=== PATIENT | male | born 1960 | race Caucasian/White ===

== ENCOUNTER 2018-07-02 09:06 | Emergency (ER) | payer MEDICARE ==
--- NOTE | 2018-07-02 10:26 | RADIOLOGY REPORT (SQ) ---
EXAM DESCRIPTION: HIP BILATERAL COMPLETED DATE/TIME: 07/02/2018 10:02 am REASON FOR STUDY: Hip pain hip pain COMPARISON: None. NUMBER OF VIEWS: Three views. TECHNIQUE: AP pelvis and additional frog-leg view of the right and left hip. LIMITATIONS: None. FINDINGS: No fracture or dislocation. Joint space narrowing in both hips. Osteophytes left femoral head. SI joints are normal. IMPRESSION: NO RADIOGRAPHIC EVIDENCE OF ACUTE INJURY. TECHNICAL DOCUMENTATION: JOB ID: [id number] [employer]- All Rights Reserved Reading location - IP/workstation name: [email or web address]
[2018-07-02 10:34] LABS: ABSOLUTE BASOPHILS # (AUTO) 0.1 10^3/uL (0.0-0.2); ABSOLUTE EOSINOPHILS # (AUTO) 0.5 10^3/uL (0.0-0.6); ABSOLUTE LYMPHOCYTES (AUTO) 1.3 10^3/uL (0.5-4.7); ABSOLUTE MONOCYTES (AUTO) 0.7 10^3/uL (0.1-1.4); ABSOLUTE NEUT (AUTO) 6.6 10^3/uL (1.7-8.2); BASOPHILS % (AUTO) 0.8 % (0-2); EOSINOPHILS % (AUTO) 5.2 % (0-6); HEMATOCRIT 42.2 % (37.9-51.0); HEMOGLOBIN 14.4 g/dL (13.5-17.0); MEAN CORPUSCULAR HEMOGLOBIN 29.1 pg (27.0-33.4); MEAN CORPUSCULAR VOLUME 85 fl (80-97); PLATELET COUNT 370 10^3/uL (150-450); RED BLOOD COUNT 4.94 10^6/uL (4.35-5.55); RED CELL DISTRIBUTION WIDTH 13.4 % (11.5-14.0); TOTAL CELLS COUNTED % (AUTO) 100 %; WHITE BLOOD COUNT 9.1 10^3/uL (4.0-10.5)
[2018-07-02 10:58] LABS: ALANINE AMINOTRANSFERASE 24 U/L (21-72); ALBUMIN 4.2 g/dL (3.5-5.0); ALKALINE PHOSPHATASE 95 U/L (38-126); ANION GAP 9 (5-19); ASPARTATE AMINO TRANSFERASE 21 U/L (17-59); BILIRUBIN,DIRECT 0.3 mg/dL (0.0-0.4); BILIRUBIN,TOTAL 0.5 mg/dL (0.2-1.3); BLOOD UREA NITROGEN 16 mg/dL (7-20); CALCIUM 9.5 mg/dL (8.4-10.2); CARBON DIOXIDE 28 mmol/L (22-30); CHLORIDE 107 mmol/L (98-107); GLUCOSE 89 mg/dL (75-110); POTASSIUM 4.4 mmol/L (3.6-5.0); SODIUM 143.7 mmol/L (137-145); TOTAL PROTEIN 7.4 g/dL (6.3-8.2)
[2018-07-02 14:46] VITALS: BP 126/92
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
== END 2018-07-02 15:30 | disposition home or self-care (01) ==
LOC: ER 09:06
DX: R53.1 Weakness (principal); M79.10 Myalgia, unspecified site; Z87.820 Personal history of traumatic brain injury
CPT/HCPCS: 36415; 73522; 80053; 85025; 99284

== ENCOUNTER 2018-10-29 17:51 | Emergency (ER) | payer MEDICARE ==
[2018-10-29 18:23] VITALS: BP 133/90
--- NOTE | 2018-10-29 18:42 | RADIOLOGY REPORT (SQ) ---
EXAM DESCRIPTION: KNEE LEFT 4 VIEW COMPLETED DATE/TIME: 10/29/2018 6:31 pm REASON FOR STUDY: bed 3 left knee swelling per julieta COMPARISON: None. NUMBER OF VIEWS: Four views. TECHNIQUE: AP, lateral, and both oblique radiographic images acquired of the left knee. LIMITATIONS: None. FINDINGS: MINERALIZATION: Normal. BONES: No acute fracture or dislocation. No worrisome bone lesions. JOINT: Small joint effusion. Narrowing of the lateral joint compartment with small marginal osteophy rafita. Posterior patellar and trochlear osteophytes. SOFT TISSUES: No soft tissue swelling. No radio-opaque foreign body. OTHER: No other significant finding. IMPRESSION: Degenerative joint disease. TECHNICAL DOCUMENTATION: JOB ID: [id number] [employer]- All Rights Reserved Reading location - IP/workstation name: [email or web address]
[2018-10-29 18:53] LABS: ABSOLUTE BASOPHILS # (AUTO) 0.1 10^3/uL (0.0-0.2); ABSOLUTE EOSINOPHILS # (AUTO) 0.6 10^3/uL (0.0-0.6); ABSOLUTE LYMPHOCYTES (AUTO) 1.5 10^3/uL (0.5-4.7); ABSOLUTE MONOCYTES (AUTO) 0.8 10^3/uL (0.1-1.4); ABSOLUTE NEUT (AUTO) 7.9 10^3/uL (1.7-8.2); BASOPHILS % (AUTO) 0.8 % (0-2); EOSINOPHILS % (AUTO) 5.2 % (0-6); HEMATOCRIT 42.4 % (37.9-51.0); HEMOGLOBIN 14.3 g/dL (13.5-17.0); LYMPHOCYTES % (AUTO) 13.8 % (13-45); MEAN CORPUSCULAR HEMOGLOBIN 28.1 pg (27.0-33.4); MEAN CORPUSCULAR HGB CONC 33.6 g/dL (32.0-36.0); MEAN CORPUSCULAR VOLUME 84 fl (80-97); MONOCYTES % (AUTO) 7.2 % (3-13); PLATELET COUNT 303 10^3/uL (150-450); RED BLOOD COUNT 5.08 10^6/uL (4.35-5.55); RED CELL DISTRIBUTION WIDTH 14.4 % (11.5-14.0); TOTAL CELLS COUNTED % (AUTO) 100 %; WHITE BLOOD COUNT 10.9 10^3/uL (4.0-10.5)
[2018-10-29 19:12] LABS: ALANINE AMINOTRANSFERASE 24 U/L (21-72); ALBUMIN 4.4 g/dL (3.5-5.0); ALKALINE PHOSPHATASE 87 U/L (38-126); ANION GAP 12 (5-19); ASPARTATE AMINO TRANSFERASE 30 U/L (17-59); BILIRUBIN,DIRECT 0.5 mg/dL (0.0-0.4); BILIRUBIN,TOTAL 0.6 mg/dL (0.2-1.3); BLOOD UREA NITROGEN 21 mg/dL (7-20); CALCIUM 9.9 mg/dL (8.4-10.2); CARBON DIOXIDE 27 mmol/L (22-30); CHLORIDE 102 mmol/L (98-107); GLUCOSE 92 mg/dL (75-110); POTASSIUM 5.1 mmol/L (3.6-5.0); SODIUM 141.2 mmol/L (137-145); TOTAL PROTEIN 8.2 g/dL (6.3-8.2)
[2018-10-29 19:39] LABS: ERYTHROCYTE SEDIMENTATION RATE 42 mm/hr (0-20)
--- NOTE | 2018-10-29 20:07 | ER Document Report ---
ED General - General Chief Complaint: Knee Injury Stated Complaint: KNEE PAIN/SWELLING Time Seen by Provider: 10/29/18 19:20 Notes: Patient is a 58-year-old male presents from [facility] due to concerns of left knee swelling and pain. Patient states that the pain and swelling started earlier today, have been constant since onset. Regards the pain as being a throbbing, aching, constant discomfort. Pain is worsened by ambulation. Has not tried nothing for improvement of the pain. Denies history of similar symptoms in the past. Denies any trauma to the area. No fever or constitutional symptoms. Has not seen his primary care physician regarding today's concerns. - Related Data Allergies/Adverse Reactions: No Known Allergies Allergy (Unverified 07/02/18 09:10) Past Medical History - General Information source: Patient - Social History Smoking Status: Former Smoker Frequency of alcohol use: None Drug Abuse: None Lives with: [facility] Family History: Reviewed & Not Pertinent Patient has suicidal ideation: No Patient has homicidal ideation: No Renal/ Medical History: Denies: Hx Peritoneal Dialysis Review of Systems - Review of Systems Notes: Constitutional: Negative for fever. HENT: Negative for sore throat. Eyes: Negative for visual changes. Cardiovascular: Negative for chest pain. Respiratory: Negative for shortness of breath. Gastrointestinal: Negative for abdominal pain, vomiting or diarrhea. Genitourinary: Negative for dysuria. Musculoskeletal: Positive for left knee pain and swelling Skin: Negative for rash. Neurological: Negative for headaches, weakness or numbness. 10 point ROS negative except as marked above and in HPI. Physical Exam - Vital signs Vitals: Temp Pulse Resp BP Pulse Ox 97.7 F 91 16 133/90 H 99 10/29/18 18:22 10/29/18 18:22 10/29/18 18:22 10/29/18 18:22 10/29/18 18:22 Interpretation: Normal Notes: PHYSICAL EXAMINATION: GENERAL: Well-appearing, well-nourished and in no acute distress. HEAD: Atraumatic, normocephalic. EYES: Pupils equal round and reactive to light, extraocular movements intact, sclera anicteric, conjunctiva are normal. ENT: nares patent, oropharynx clear without exudates. Moist mucous membranes. NECK: Normal range of motion, supple without lymphadenopathy LUNGS: Breath sounds clear to auscultation bilaterally and equal. No wheezes rales or rhonchi. HEART: Regular rate and rhythm without murmurs, 2+ DP pulses bilaterally ABDOMEN: Soft, nontender, normoactive bowel sounds. No guarding, no rebound. No masses appreciated. EXTREMITIES: Mild diffuse swelling of the left knee. Full flexion extension b oth actively and passively of the knee. NEUROLOGICAL: No focal neurological deficits. Moves all extremities spontaneously and on command. PSYCH: Normal mood, normal affect. SKIN: Warm, Dry, normal turgor, no rashes or lesions noted. Course - Re-evaluation Re-evalutation: 10/29/18 20:03 Patient presents with left knee pain and swelling that started within the past 48 hours. In triage labs were ordered as well as an x-ray. For unclear reasons and ESR was also sent with the labs and I do not have a clinical suspicion for septic joint. The patient has full range of motion with the knee full flexion to 90 degrees both actively and passively. There is no warmth to the joint no erythema. There is some mild swelling over the medial aspect of the knee itself. The x-ray itself does show underlying osteoarthritis and patient likely has some reactive from his underlying osteoarthritis. I do not believe that arthrocentesis is appropriate at this point given my very low clinical suspicion for gouty arthritis or septic arthritis. No exam findings or history to suggest DVT as the pain and swelling is isolated entirely to the knee joint itself without any pain more proximally or distally on the extremity. There is no edema. No asymmetry to the size of the leg. Strong 2+ DP pulses bilaterally, do not suspect critical vascular occlusion. Patient has been provided a dose of NSAIDs, advised to continue these at home and follow-up with orthopedic surgery. At this time will discharge with return precautions and follow-up recommendations. Verbal discharge instructions given a the bedside and opportunity for questions given. Medication warnings reviewed. Patient is in agreement with this plan and has verbalized understanding of return precautions and the need for primary care follow-up in the next 24-72 hours. - Vital Signs Vital signs: Temp Pulse Resp BP Pulse Ox 97.7 F 91 16 133/90 H 99 10/29/18 18:22 10/29/18 18:22 10/29/18 18:22 10/29/18 18:22 10/29/18 18:22 - Laboratory Result Diagrams: 10/29/18 18:10 10/29/18 18:10 Laboratory results interpreted by me: 10/29/18 10/29/18 18:10 18:10 WBC 10.9 H RDW 14.4 H ESR 42 H Potassium 5.1 H BUN 21 H Direct Bilirubin 0.5 H - Diagnostic Test Radiology reviewed: Image reviewed, Reports reviewed Radiology results interpreted by me: 10/29/18 20:05 Left knee x-ray: Osteoarthritis, no acute fracture Discharge - Discharge Clinical Impression: Left knee pain Qualifiers: Chronicity: acute Qualified Code(s): M25.562 - Pain in left knee Osteoarthritis of left knee Qualifiers: Osteoarthritis type: primary Qualified Code(s): M17.12 - Unilateral primary osteoarthritis, left knee Condition: Good Disposition: HOME, SELF-CARE Additional Instructions: Your x-ray does not show any acute fracture today. Your x-ray does show underlying osteoarthritis which likely accounts for the pain and swelling in your knee.. Take the naproxen as prescribed for the next 1 week. Continue to apply ice to the area is much your able. Please follow-up with your primary care physician if you do not have improving your symptoms in the next 1-2 weeks. Please return immediately if you develop weakness, numbness, spreading redness from the area, or any other symptoms that are concerning to you. Prescriptions: Naproxen 500 mg PO BID PRN #14 tablet PRN Reason:
== END 2018-10-29 21:52 | disposition home or self-care (01) ==
LOC: ER 17:51
DX: M17.12 Unilateral primary osteoarthritis, left knee (principal); M25.562 Pain in left knee; Z87.891 Personal history of nicotine dependence
CPT/HCPCS: 36415; 80053; 84550; 85025; 85652; 99284

== ENCOUNTER 2018-10-30 03:52 | Emergency (ER) | payer MEDICARE ==
[2018-10-30] MEDS ORDERED: IBUPROFEN 600 MG TABLET PO ONE (04:10)
--- NOTE | 2018-10-30 04:29 | ER Document Report ---
HPI - HPI Time Seen by Provider: 10/30/18 04:02 Context: Patient is a 58-year-old male that comes emergency department for chief complaint of fall and knee pain. He states that he fell in the bathroom, he landed on his knees, he denies falling, hitting his back, head, or any other location. He denies any other location of pain except for knees. He comes by EMS from [facility]. He is not on a blood thinner. He was evaluated here yesterday for knee pain as well but states he did fall today since he was evaluated yesterday. Past Medical History - General Information source: Patient, Emergency Med Personnel - Social History Smoking Status: Unknown if Ever Smoked Frequency of alcohol use: None Drug Abuse: None Lives with: Care Home Family History: Reviewed & Not Pertinent Renal/ Medical History: Denies: Hx Peritoneal Dialysis - Immunizations Immunizations up to date: Yes Hx Diphtheria, Pertussis, Tetanus Vaccination: Yes Vertical Provider Document - CONSTITUTIONAL General Appearance: WD/WN, No Apparent Distress - HEENT HEENT: Atraumatic, Normocephalic - NECK Neck: Normal Inspection - RESPIRATORY Respiratory: Breath Sounds Normal, No Respiratory Distress - CARDIOVASCULAR Cardiovascular: Regular Rate, Regular Rhythm - GI/ABDOMEN Gastrointestinal: Abdomen Soft, Abdomen Non-Tender - BACK Back: Normal Inspection - MUSCULOSKELETAL/EXTREMETIES Musculoskeletal/Extremeties: MAEW, FROM, Tender - Tender over the patellar areas bilaterally, worse on the left. There is some soft tissue swelling over the left knee, however range of motion is intact, no erythema or abnormal heat. Normal distal neurovascular exams bilaterally. Nontender hips. - NEURO Level of Consciousness: Awake, Alert, Appropriate Motor/Sensory: No Motor Deficit, No Sensory Deficit - DERM Integumentary: Warm, Dry, No Rash Course - Re-evaluation Re-evalutation: There is some soft tissue swelling over the left knee with some tenderness on exam but patient has full range of motion on exam, no erythema, abnormal heat, fever, or signs of septic arthritis. He had an injury today, knees were checked on x-rays, these were negative for fracture, the knee now has a moderate effusion. He has normal distal neurovascular exam. Nontender hips, no other signs of trauma, no other reported trauma. I discussed the findings with patient, discussed recommendations. He already uses a walker at the [facility]. Discussed recommendations, follow-up, return precautions. Patient states understanding and agreement. Discharged back to long-term care facility. Discharge - Discharge Clinical Impression: Fall Qualifiers: Encounter type: initial encounter Qualified Code(s): W19.XXXA - Unspecified fall, initial encounter Knee pain Qualifiers: Chronicity: acute Laterality: bilateral Qualified Code(s): M25.561 - Pain in right knee Condition: Stable Disposition: HOME, SELF-CARE Additional Instructions: Imaging does not show any fractures. He does have a moderate effusion in the right knee, this will likely need to be elevated, ice 3-4 times a day for 10 to 15 minutes, and he should be on the anti-inflammatory he was prescribed yesterday. He may also need more assistance with walking/transferring. This should slowly resolve with time, I recommend follow-up with orthopedics for additional management, see referral. Return for any concerning or worsening symptoms including increased swelling, developing redness, fever, or any other concerning or worsening symptoms. Referrals: SUKI MARADIAGA MD [ACTIVE STAFF] - Follow up in 1 week
--- NOTE | 2018-10-30 05:08 | RADIOLOGY REPORT (SQ) ---
EXAM DESCRIPTION: XR KNEE 1-2 VIEWS BILATERAL COMPLETED DATE/TME: 10/30/2018 04:10 CLINICAL HISTORY: 58 years Male, fall on knees, pain COMPARISON: CR, October 29, 2018. Findings: Small osteophytes of the medial and lateral compartments bilaterally. Small sclerosis of the distal right femoral diaphysis suggestive of small bone infarct. Moderate left knee effusion. Bones, joints, and soft tissues of the bilateral XR KNEE 2 VIEWS BILATERAL appear otherwise unremarkable. IMPRESSION: 1. Moderate left knee effusion. 2. Mild osteoarthritis of the right knee.
== END 2018-10-30 08:16 | disposition home or self-care (01) ==
LOC: ER 03:52
DX: M25.561 Pain in right knee (principal); M25.562 Pain in left knee; W18.30XA Fall on same level, unspecified, initial encounter; Y92.121 Bathroom in nursing home as the place of occurrence of the external cause
CPT/HCPCS: 99283; 73560; A9270

== ENCOUNTER 2019-01-13 08:52 | Emergency (ER) | payer MEDICARE ==
[2019-01-13] MEDS ORDERED: IBUPROFEN 600 MG TABLET PO ONE (09:21)
--- NOTE | 2019-01-13 09:23 | ER Document Report ---
ED Medical Screen (RME) - General Chief Complaint: Fall Injury Stated Complaint: FALL Time Seen by Provider: 01/13/19 09:15 Mode of Arrival: Medic Information source: Patient Notes: 58-year-old male presented to ED for complaint of left thigh and upper leg pain. He states that he fell out of his chair when he was trying to get up this morning landing on his buttocks and is has pain in his hip leg and thigh. He is a resident at [facility] due to a traumatic brain injury. Patient is alert is able to speak in full sentences. I have greeted and performed a rapid initial assessment of this patient. A comprehensive ED assessment and evaluation of the patient, analysis of test results and completion of medical decision making process will be conducted by an additional ED providers. Dictation of this chart was performed using voice recognition software; therefore, there may be some unintended grammatical errors. TRAVEL OUTSIDE OF THE [place] IN LAST 30 DAYS: No - Related Data Allergies/Adverse Reactions: No Known Allergies Allergy (Verified 01/13/19 08:55) Past Medical History Renal/ Medical History: Denies: Hx Peritoneal Dialysis - Immunizations Immunizations up to date: Yes Hx Diphtheria, Pertussis, Tetanus Vaccination: Yes Physical Exam - Vital signs Vitals: Temp Pulse Resp BP Pulse Ox 98.7 F 86 20 127/91 H 97 01/13/19 09:00 01/13/19 09:00 01/13/19 09:00 01/13/19 09:00 01/13/19 09:00 Course - Vital Signs Vital signs: Temp Pulse Resp BP Pulse Ox 98.7 F 86 20 127/91 H 97 01/13/19 09:00 01/13/19 09:00 01/13/19 09:00 01/13/19 09:00 01/13/19 09:00
--- NOTE | 2019-01-13 10:16 | RADIOLOGY REPORT (SQ) ---
EXAM DESCRIPTION: FEMUR LEFT COMPLETED DATE/TIME: 01/13/2019 10:03 am REASON FOR STUDY: fell pain in left upper leg COMPARISON: None. NUMBER OF VIEWS: Two views. TECHNIQUE: Two radiographic images acquired of the left femur to include hip and knee in at least on e projection. LIMITATIONS: None. FINDINGS: MINERALIZATION: He diminished BONES: No acute fracture. No suspicious osseous lesions. Mspe-mo-dgadacsg degenerative changes at t he hip and knee with joint space loss and osteophytosis. SOFT TISSUES: No obvious swelling or foreign body. OTHER: No other significant finding. IMPRESSION: No evidence of acute bony abnormality. Degenerative changes at the hip and knee with joint space loss and osteophytosis. TECHNICAL DOCUMENTATION: JOB ID: [id number] [employer]- All Rights Reserved Reading location - IP/workstation name: [email or web address]
--- NOTE | 2019-01-13 10:17 | RADIOLOGY REPORT (SQ) ---
EXAM DESCRIPTION: PELVIS AP COMPLETED DATE/TIME: 01/13/2019 10:03 am REASON FOR STUDY: fell pain in left upper leg COMPARISON: None. NUMBER OF VIEWS: One view TECHNIQUE: AP Pelvis LIMITATIONS: None. FINDINGS: MINERALIZATION: Normal. HIPS: No acute fracture or dislocation. No worrisome bone lesions. Degenerative changes with mild kevin int space loss and osteophytosis. PELVIS AND SACRUM: No acute fracture or dislocation. No worrisome bone lesions. PUBIS AND ISCHIUM: No acute fracture. LOWER LUMBAR SPINE: No significant findings as visualized. SOFT TISSUES: No findings. OTHER: No other significant finding. IMPRESSION: No evidence of acute bony abnormality. Degenerative changes at the hips with joint space loss and osteophytosis . COMMENT: Pelvic fractures are often occult on plain radiographs. If strong clinical suspicion for f racture, recommend CT or MR. TECHNICAL DOCUMENTATION: JOB ID: [id number] [employer] All Rights Reserved Reading location - IP/workstation name: [email or web address]
--- NOTE | 2019-01-13 12:50 | ER Document Report ---
ED Fall - General Chief Complaint: Fall Injury Stated Complaint: FALL Time Seen by Provider: 01/13/19 09:15 Primary Care Provider: SUKI MARADIAGA MD [ACTIVE STAFF] - Follow up as needed Mode of Arrival: Medic Information source: Patient Notes: HPI: 58-year-old male who presents today from the [facility] secondary to traumatic brain injury who had a fall from his bed. Patient landed on bilateral knees. Patient has had this multiple times in the past with a recent evaluation for similar presentation in October. Patient at that time had an effusion of the left knee. I called and spoke to the facility. They state that the patient has had no illnesses. They state that the patient is at his baseline mental status. Patient has had no recent nausea, vomiting, or fevers. They state that the patient has intermittent knee swelling and is followed by physical therapy. ROS: See HPI All other review of systems reviewed and otherwise negative Reviewed vital signs and nursing note as charted by RN. PHYSICAL EXAM: CONSTITUTIONAL: Alert and oriented to present location and the president. This is baseline according to the staff HEAD: Normocephalic; atraumatic ENT: Normal nose; no rhinorrhea; moist mucous membranes; midface stable; pharynx without lesions noted NECK: Supple without meningismus; non-tender CARD: Regular rate and rhythm; no murmurs; symmetric distal pulses RESP: Normal chest excursion without splinting or tachypnea; breath sounds clear and equal bilaterally; no tenderness to anterior posterior palpation of the ribs ABD/GI: Normal bowel sounds; non-distended; soft, non-tender BACK: The back appears normal and is non-tender to palpation EXT: Patient has some swelling with no obvious warmth or erythema to the left knee. Also some tenderness to the mid thigh. No tenderness to the abdomen, lower back, left hip, tibia/fibula, ankle, or foot. Strong distal pulses SKIN: No acute lesions noted NEURO: CN 2-12 intact; 5/5 bilateral upper and lower extremity strength with sensation intact to light touch PSYCH: The patient's mood and manner are appropriate. Grooming and personal hygiene are appropriate. TRAVEL OUTSIDE OF THE [place] IN LAST 30 DAYS: No - Related data Allergies/Adverse Reactions: No Known Allergies Allergy (Verified 01/13/19 08:55) Past Medical History - General Information source: Patient - Social History Smoking Status: Unknown if Ever Smoked Family History: Reviewed & Not Pertinent Patient has suicidal ideation: No Patient has homicidal ideation: No Renal/ Medical History: Denies: Hx Peritoneal Dialysis - Immunizations Immunizations up to date: Yes Hx Diphtheria, Pertussis, Tetanus Vaccination: Yes Physical Exam - Vital signs Vitals: Temp Pulse Resp BP Pulse Ox 98.7 F 86 20 127/91 H 97 01/13/19 09:00 01/13/19 09:00 01/13/19 09:00 01/13/19 09:00 01/13/19 09:00 Course - Re-evaluation Re-evalutation: Given the history and physical examination, an x-ray of the femur and hip were ordered in triage. No obvious fractures noted. I called the facility and it appears that the patient has chronic intermittent swelling of the knees. He fell onto the knees today. History of effusions in the past. No obvious signs of infection being afebrile with no erythema or warmth. Strong distal pulses. Given the patient's brain injury in the past, we will obtain a CT scan of the head. 01/13/19 12:49 X-rays as recorded. 01/13/19 14:59 CT scan of the head as recorded. Labs as recorded. No change in exam. Left knee is slightly less swollen than previous. Still no erythema or warmth. Long history of this in the past according to the care provider that I spoke with directly. Concern about a knee contusion. I will provide orthopedic follow-up with strict return precautions. - Vital Signs Vital signs: Temp Pulse Resp BP Pulse Ox 97.7 F 71 16 130/83 H 97 01/13/19 14:36 01/13/19 14:36 01/13/19 14:36 01/13/19 14:36 01/13/19 14:36 - Laboratory Result Diagrams: 01/13/19 13:37 01/13/19 13:37 Laboratory results interpreted by me: 01/13/19 01/13/19 13:37 13:37 WBC 11.6 H Hgb 12.7 L Hct 37.5 L MCV 79 L MCH 26.7 L RDW 14.2 H Lymphocytes % 12.7 L Absolute Neutrophils 8.9 H Urine Urobilinogen 2.0 H Discharge - Discharge Clinical Impression: Accidental fall from bed Qualifiers: Encounter type: initial encounter Qualified Code(s): W06.XXXA - Fall from bed, initial encounter Contusion of left knee Qualifiers: Encounter type: initial encounter Qualified Code(s): S80.02XA - Contusion of left knee, initial encounter Condition: Good Disposition: HOME, SELF-CARE Additional Instructions: Come back immediately with any pain to any new location, any swelling other than the left knee, redness or warmth to the knee, fever, vomiting, or any other acute problems. Please make sure that the patient follows up with orthopedics as we have provided for further evaluation of the knee. Referrals: SUKI MARADIAGA MD [ACTIVE STAFF] - Follow up as needed
--- NOTE | 2019-01-13 13:12 | RADIOLOGY REPORT (SQ) ---
EXAM DESCRIPTION: CT HEAD WITHOUT COMPLETED DATE/TIME: 01/13/2019 1:00 pm REASON FOR STUDY: 38; fall COMPARISON: 10/06/2007 TECHNIQUE: Axial images acquired through the brain without intravenous contrast. Images reviewed wi th bone, brain and subdural windows. Additional sagittal and coronal reconstructions were generated. Images stored on PACS. All CT scanners at this facility use dose modulation, iterative reconstruction, and/or weight based d osing when appropriate to reduce radiation dose to as low as reasonably achievable (ALARA). [facility]: Dose Right [facility]: CareDose [facility]: Dose Right [facility]: Teradose 4D [facility]: Codingpeople RADIATION DOSE: CT Rad equipment meets quality standard of care and radiation dose reduction techniq ues were employed. CTDIvol: 53.2 mGy. DLP: 2088 mGy-cm.mGy. LIMITATIONS: None. FINDINGS: VENTRICLES: Prominent. CEREBRUM: No masses. No hemorrhage. No midline shift. 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 There are additional areas of low density in the white m atter most likely due to chronic micro-vascular ischemic change, mildly progressed from prior. No ev idence for acute large vascular territory infarction. CEREBELLUM: No masses. No hemorrhage. No alteration of density. No evidence for acute infarction. EXTRAAXIAL SPACES: Age-related involutional change. No fluid collections. No masses. ORBITS AND GLOBE: No intra- or extraconal masses. Normal contour of globe without masses. CALVARIUM: No fracture. PARANASAL SINUSES: No fluid or mucosal thickening. SOFT TISSUES: No mass or hematoma. OTHER: No other significant finding. IMPRESSION: No evidence of acute intracranial abnormality. Chronic changes from prior left frontal and temporal infarct and nonspecific white matter changes, li patrick sequelae of microangiopathic disease, mildly progressed from prior. EVIDENCE OF ACUTE STROKE: NO. TECHNICAL DOCUMENTATION: JOB ID: [id number] Quality ID # [id number]: Final reports with documentation of one or more dose reduction techniques (e.g., Au tomated exposure control, adjustment of the mA and/or kV according to patient size, use of iterative reconstruction technique) 2010 [employer]- All Rights Reserved Reading location - IP/workstation name: [email or web address]
[2019-01-13 13:55] LABS: ABSOLUTE BASOPHILS # (AUTO) 0.2 10^3/uL (0.0-0.2); ABSOLUTE EOSINOPHILS # (AUTO) 0.2 10^3/uL (0.0-0.6); ABSOLUTE LYMPHOCYTES (AUTO) 1.5 10^3/uL (0.5-4.7); ABSOLUTE MONOCYTES (AUTO) 0.9 10^3/uL (0.1-1.4); ABSOLUTE NEUT (AUTO) 8.9 10^3/uL (1.7-8.2); BASOPHILS % (AUTO) 1.5 % (0-2); EOSINOPHILS % (AUTO) 1.3 % (0-6); HEMATOCRIT 37.5 % (37.9-51.0); HEMOGLOBIN 12.7 g/dL (13.5-17.0); LYMPHOCYTES % (AUTO) 12.7 % (13-45); MEAN CORPUSCULAR HEMOGLOBIN 26.7 pg (27.0-33.4); MEAN CORPUSCULAR HGB CONC 33.9 g/dL (32.0-36.0); MEAN CORPUSCULAR VOLUME 79 fl (80-97); MONOCYTES % (AUTO) 7.8 % (3-13); PLATELET COUNT 417 10^3/uL (150-450); RED BLOOD COUNT 4.77 10^6/uL (4.35-5.55); RED CELL DISTRIBUTION WIDTH 14.2 % (11.5-14.0); SEGMENTED NEUTROPHILS % (AUTO) 76.7 % (42-78); TOTAL CELLS COUNTED % (AUTO) 100 %; WHITE BLOOD COUNT 11.6 10^3/uL (4.0-10.5)
[2019-01-13 13:58] LABS: APPEARANCE,URINE SLIGHTLY-CLOUDY; BILIRUBIN,URINE NEGATIVE (NEGATIVE); COLOR,URINE YELLOW; GLUCOSE, URINE NEGATIVE (NEGATIVE); KETONES,URINE NEGATIVE (NEGATIVE); LEUKOCYTE ESTERASE,URINE NEGATIVE (NEGATIVE); NITRITE,URINE NEGATIVE (NEGATIVE); PROTEIN,URINE NEGATIVE (NEGATIVE); URINE SPECIFIC GRAVITY 1.017
[2019-01-13 14:15] LABS: ANION GAP 9 (5-19); BLOOD UREA NITROGEN 15 mg/dL (7-20); CALCIUM 9.3 mg/dL (8.4-10.2); CARBON DIOXIDE 28 mmol/L (22-30); CHLORIDE 101 mmol/L (98-107); GLUCOSE 94 mg/dL (75-110); POTASSIUM 4.7 mmol/L (3.6-5.0)
--- NOTE | 2019-01-13 15:47 | RADIOLOGY REPORT (SQ) ---
EXAM DESCRIPTION: KNEE LEFT 4 VIEW COMPLETED DATE/TIME: 01/13/2019 3:35 pm REASON FOR STUDY: 38, fall COMPARISON: None. EXAM PARAMETERS: NUMBER OF VIEWS: Four views. TECHNIQUE: AP, lateral and oblique radiographic images acquired of the left knee. LIMITATIONS: Knee held in flexion. FINDINGS: MINERALIZATION: Normal. BONES: No acute fracture or dislocation. Mild arthrosis. . JOINTS: No effusion. SOFT TISSUES: No significant soft tissue swelling. No radiopaque foreign body. OTHER: No other significant finding. IMPRESSION: No acute findings. TECHNICAL DOCUMENTATION: JOB ID: [id number] [place]-72 2010 [employer]- All Rights Reserved Reading location - IP/workstation name: [email or web address]
[2019-01-13 16:32] VITALS: BP 130/84
== END 2019-01-13 17:07 | disposition home or self-care (01) ==
LOC: ER 08:52
DX: S80.02XA Contusion of left knee, initial encounter (principal); M79.652 Pain in left thigh; W06.XXXA Fall from bed, initial encounter; Y92.193 Bedroom in other specified residential institution as the place of occurrence of the external cause; M25.462 Effusion, left knee
CPT/HCPCS: 99285; 36415; 85025; 80048; 81001; 73552; 73564; 72170; 70450; A9270